=== PATIENT | male | born 1935 | race Caucasian/White ===

== ENCOUNTER 2016-06-15 12:13 | Emergency (ER) | payer MEDICARE ==
[~2016-06-15] VITALS: Ht 170.2 cm; Wt 70.5 kg
[~2016-06-15 12:13] MED LIST: ASC500 PO; CALC0.257 PO; FERR-74 PO; HYDR1TAB91 PO; LISI40TA13 PO; ONDA8TAB10 PO; ROPI2TAB3 PO; SYN25 PO; ZOC20 PO
[2016-06-15 12:20] VITALS: BP 180/91; PULSE 54; RESP 16; O2SAT 99
--- NOTE | 2016-06-15 12:44 | ED.REPORT ---
HPI-Neurologic Deficit Date of Service Jun 15, 2016 ED Provider: Dr. Meyers Pt is an 80 y/o male w/ a hx of HTN, hyperlipidemia, presenting to the ED with his c/o right hand numbness and tingling onset 1120 which occurred for about 15-20 minutes. His tingling occurs from the wrist down with aching pain over the upper arm. He also states his right hand feels swollen although visually he can tell that it is not. He experienced a short duration of left hand numbness of less severity after arriving to his room in the ED today. He called his PCP's office prior to arrival and the nurse told him to come to the ED. He also c/o nausea without vomiting. He denies headache although he feels like his "head in swollen or thick", neck pain, fever, chills, CP, SOB, change in vision, focal weakness, change in speech, facial droop, problem walking, abnormal movement. He has not been taking his Lisinopril recently but is scheduled to restart in the near future. He was seen on May 27 in the ED for nausea and dizziness. An EKG was performed which showed 1st degree AV block in a sinus rhythm. Chest x-ray was negative. Serial troponins were negative. He was discharged with a diagnosis of pre-syncope and discharged with plan for follow-up with cardiology. Nursing Notes Stated Complaint: TINGLING IN R HAND/NAUSEA Chief Complaint: General Complaint Nursing Notes Reviewed: Yes Allergies: Coded Allergies: No Known Allergies (Verified , 02/09/15) Scheduled Hydrocod/APAP-Expunged, Do Not Renew! (Hydrocod/APAP-Expunged, Do Not Renew!) 1 Each Tablet 1 TAB PO HS 1-2 tabs at bedtime as needed Levothyroxine-Expunged Drug, Do Not Renew! (Synthroid-Expunged Drug, Do Not Renew!) 25 Mcg Tablet 25 MCG PO AM 1 tab before breakfast Lisinopril-Expunged Drug, Do Not Renew! (Lisinopril-Expunged Drug, Do Not Renew! ) 40 Mg Tablet 40 MG PO BID 1/2 tab (20mg) Ropinirole Hcl-Expunged Drug, Do Not Renew! (Ropinirole Hcl-Expunged Drug, Do Not Renew!) 2 Mg Tablet 2 MG PO HS 1 tab at bedtime Simvastatin-Expunged Drug, Choose New Med! (Simvastatin-Expunged Drug, Choose New Med!) 20 Mg Tablet 20 MG PO HS 1 tab at bedtime Scheduled PRN Calcium Gluconate (Calcium Gluconate) 500 Gm Powder 500 GM MC QID PRN PRN 30 tid for one week, then daily Ondansetron ODT (Ondansetron ODT) 8 Mg Tab.rapdis 8 MG PO QID PRN PRN For Nausea Miscellaneous Medications Ascorbic Acid-Expunged Drug, Do Not Renew! (Vitamin C-Expunged Drug, Do Not Renew!) 500 Mg Tablet 500 MG PO 1 tab daily Calcitriol (Rocaltrol) 0.25 Mcg Capsule 0.25 MCG PO Ferrous Sulfate-Expunged Drug, Do Not Renew! (Feosol-Expunged Drug, Do Not Renew !) 1 Tab Tablet 325 MG PO 1 tab daily General Time Seen by Provider: 12:46 Chief Complaint Numbness hand... (Right) Hx Obtained From: Patient, Spouse Arrived By: Walk-in Sudden in Onset?: Yes Onset Occurred: 1 - 4 hours ago Symptom Duration: 1 - 15 minutes Progression Since Onset: Resolved Location: : Arm right Severity: Current: No pain currently Severity: Maximum: Mild Similar Sx Previous: Yes Past Medical History Past Medical History Hypertension Hyperlipidemia Hypothyroid Restless leg syndrome Benign prostatic hypertrophy Past Surgical History None reported. Smoking History Never Smoker Social History Is with supportive family Other Social History: Good social support, , Local resident Ambulatory Status Independent Review of Systems Constitutional: Denies: Chills, Fever Respiratory: Denies: Shortness of breath Cardiovascular: Denies: Chest pain GI: Reports: Nausea, Denies: Abdominal pain, Diarrhea, Vomiting Neurologic: Reports: Numbness, Denies: Abnormal movement, Confusion, Dizziness, Focal weakness, Headache, Problem walking, Slurred speech, Unable to speak, Vision change, Weakness Complete sys rev & neg: except as marked. Physical Exam Initial Vital Signs Vital Signs (First) Date Time Temp Pulse Resp B/P Pulse Ox O2 Delivery O2 Flow Rate FiO2 06/15/16 12:20 36.2 54 16 180/91 99 Initial VS: Reviewed, Vital signs abnormal ENT: Mucous membranes moist, Conjunctiva normal, No scleral icterus Neck: Supple, Non-tender, Full range of motion Abdomen / GI: Soft, Non-tender, No guarding, No rebound, No distention Extremities: Vascular intact, Neuro intact, No swelling, No tenderness Skin: Warm, Dry, No cyanosis Psychiatric: Mood/affect normal, Behavior normal, Normal thought content General/Constitutional: Awake, Alert, No acute distress, Well appearing, Cooperative, Not toxic appearing Head / Eyes: Atraumatic, Normocephalic, PERRL, EOMI, No nystagmus Respiratory / Chest: Atraumatic, Breath sounds NL, Breath sounds = bilat, No respiratory distress, No rales, No rhonchi, No wheezing, No retractions, No stridor, No chest tenderness, No chest wall deformity, No crepitus Cardiovascular: Heart rate NL, Regular rhythm, Cap refill not delayed, Peripheral circulation NL Heart Sounds / Murmur: Positive: Systolic murmur present.. (II/, right upper sternal border) Neurologic: Oriented X3, Speech NL, No motor deficits, No sensory deficits, CN II - XII intact, Cerebellar NL, Memory NL Upper Extremity / MS: Atraumatic, Inspection NL, Full range of motion, No swelling, Non-tender, No snuffbox tenderness, No erythema, No deformity, Neurologic intact, Vascular intact, No ligamentous injury, Tendon function NL, No compartment syndrome, No circumferential injury, No clubbing/cyanosis, No edema Interpretation & Diagnostics Lab Results Interpretation Result Diagram: 06/15/16 1245 06/15/16 1245 Test 06/15/16 12:45 White Blood Count 7.1th/mm3 (3.8-10.1) Red Blood Count 4.58mil/mm3 (4.40-5.80) Hemoglobin 14.2g/dL (13.8-17.2) Hematocrit 41.2% (41.0-50.0) Mean Corpuscular Volume 90.0fL (81-100) Mean Corpuscular Hemoglobin 31.0pg (27.0-35.0) Mean Corpuscular Hemoglobin Concent 34.5% (32.0-37.0) Red Cell Distribution Width 12.2% (12.3-15.4) Platelet Count 237bil/L (150-400) Neutrophils (%) (Auto) 71.3% (40-74) Lymphocytes (%) (Auto) 16.8% (14-46) Monocytes (%) (Auto) 9.0% (4-12) Eosinophils (%) (Auto) 2.7% (0-5) Basophils (%) (Auto) 0.1% (0-3) Sodium Level 128mEq/L (134-144) Potassium Level 4.9mEq/L (3.5-5.2) Chloride Level 92mEq/L (97-108) Carbon Dioxide Level 22mmol/L (18-29) Blood Urea Nitrogen 13mg/dL (8-27) Creatinine 0.68mg/dL (0.76-1.27) Estimat Glomerular Filtration Rate 119mL/min (>59) Glucose Level 115mg/dL (60-99) Calcium Level 8.1mg/dL (8.5-10.1) Magnesium Level 2.0mg/dL (1.6-2.6) Total Bilirubin 0.4mg/dL (0.0-1.2) Aspartate Amino Transf (AST/SGOT) 25U/L (0-50) Alanine Aminotransferase (ALT/SGPT) 30U/L (0-44) Alkaline Phosphatase 65U/L (25-160) Troponin T < 0.010ug/L (0.0-0.011) Pro-B-Type Natriuretic Peptide 246.3pg/mL (0-486) Total Protein 6.1g/dL (6.4-8.4) Albumin 3.7g/dL (3.4-5.0) Hold Christianson Top Tube Received (Received) ECG Interpretation ECG Interpretation: Sinus bradycardia rate 55 Prolonged OH interval Time: 12:58 Interpreted by: ED physician Normal ECG Interpretation: No acute ischemic changes, No change from prior ECGs X-Ray Chest Interpretation Chest Xray Interpretation: IMPRESSION: No acute cardiopulmonary abnormality Dictated by: Ernesto Brennan M.D. on 06/15/2016 at 13:12 Approved by: Ernesto Brennan M.D. on 06/15/2016 at 13:12 View: Portable, 1 view Interpretation / Wet Read by: Interpret - Radiologist Re-Eval/Medical Decision Med Decision/Clinical Course Patient has vague distal peripheral paresthesias of the hands which are intermittent and transient and seemed to affect both sides of the body. His neurologic exam is negative, this is not consistent with stroke. He denies pain. I question whether this could be related to hypocalcemia though it seems mild at this point. He will be started on calcium supplementation. Extensive education risks and benefits are explained and return precautions are given. Re-Evaluation/Progress : Time of Eval: 14:53 )( Re-Eval Neurologic Exam: Alert, Pt is back to baseline, Oriented X3, CN II - XII intact, Speech normal, No motor deficits, No sensory deficits, Cerebellar normal Re-Evaluation/Progress Note: Pt rechecked. Informed pt of plan for treatment. Pt understands and agrees with plan for treatment. F/U and RTER warnings given. All questions addressed. Consultation : Referral / Consult Name: Remigio Schmidt MD Consulted With: Cardiology Call Returned at: 14:11 Buffer Nickel: Agrees with eval, Agrees with plan Counseled Regarding: Diagnosis, Lab results, Need for follow-up, When/why to return to ED Discharge & Departure Impression: Primary Impression: Hyponatremia Additional Impression: Hypocalcemia Disposition: Home Discharge Condition All VS Reviewed: Yes Condition: Stable Additional Instructions: Overall we do not seem to find a life-threatening cause of your symptoms though your calcium is on the low side as well as your sodium. Begin calcium supplementation. Return to ER immediately for signs or symptoms concerning for stroke. Call your regular doctor today for a close follow-up appointment. Referrals: Priya Rosen MD (PCP) Scribe Attestation Portions of this note were transcribed by Dakota Up. I, Dr. Meyers personally performed the history, physical exam and medical decision-making; I reviewed and confirmed the accuracy of the information in the transcribed note. Signed by Stephanie Olivas, 06/15/16 - 1080 copies to: Priya Rosen MD, Timothy S DO Jun 15, 2016 12:44 DAKOTA UP Jun 15, 2016 12:57
[2016-06-15 12:59] LABS: BASOPHILS % (AUTO) 0.1 % (0-3); EOSINOPHILS % (AUTO) 2.7 % (0-5); NEUTROPHILS % (AUTO) 71.3 % (40-74); Platelet Count 237 bil/L (150-400)
--- NOTE | 2016-06-15 13:14 | DRSVH ---
PROCEDURE: X-RAY CHEST ONE VIEW, PORTABLE ([id number]) INDICATIONS: sob TECHNIQUE: One view of the chest was acquired. COMPARISON: 02/09/2015 FINDINGS: Surgical changes and devices: None. Lungs and pleura: No pleural effusions or pneumothorax. Lungs are clear. Mediastinum: Eventration right hemidiaphragm. Mediastinal contours appear normal. Heart size is nor mal. Aortic calcifications. Bones and chest wall: No suspicious bony lesions. Overlying soft tissues appear unremarkable. IMPRESSION: No acute cardiopulmonary abnormality Dictated by: Ernesto Brennan M.D. on 06/15/2016 at 13:12 Approved by: Ernesto Brennan M.D. on 06/15/2016 at 13:12
[2016-06-15 13:35] LABS: TROPONIN T < 0.010 ug/L (0.0-0.011)
[2016-06-15] MEDS ORDERED: Calcium Chl 10% (Gm) Inj 1 GM in Dextrose 5% 100 ML IV ONE (14:30)
[2016-06-15] MEDS ORDERED: Magnesium Sulf 2 Gm/50mL Water 2 GM in IV Premix 1 EACH IV ONE (14:30)
[2016-06-15] MEDS ORDERED: [UNRECOGNIZED DRUG - CODE] MC (14:50)
== END 2016-06-15 16:40 | disposition home or self-care (01) ==
LOC: SED 12:13
DX: E87.1 Hypo-osmolality and hyponatremia (principal); E83.51 Hypocalcemia; I10 Essential (primary) hypertension; E78.5 Hyperlipidemia, unspecified; E03.9 Hypothyroidism, unspecified